=== PATIENT | male | born 1955 | race Caucasian/White ===

== ENCOUNTER 2019-09-19 19:05 | Inpatient (IN) | payer OTHER ==
[~2019-09-19] VITALS: Ht 198.1 cm; Wt 95.3 kg
--- NOTE | 2019-09-20 02:00 | NUR ---
PLASTICS HEAT WELDER NOTE PATIENT RECEIVED FROM [facility] IN [facility]. PATIENT A/O X 3-4 WITH PERIODS OF FORGETFULNESS. PATIENT ABLE TO TRANSFER FROM [facility] TO BED. PATIENT NOTED TO BE SOB WITH SHALLOW BREATHS DURING EXERTION. SATURATION IN THE HIGH 80'S DURING EXERTION. UPON REST 02 SATURATION INCREASED TO 94%. PATIENT HR TACHY DURING EXERTIONS AND SR AT REST. PATIENT DENIES CHEST PAIN. PATIENT SKIN COOL, DIAPHORETIC AND CLAMMY, BLOOD SUGAR CHECK 130. PATIENT STATES HE FEELS REALLY WARM PATIENT AFEBRILE AXILLARY TEMP 97.8. CALLED AND NOTIFIED OF PATIENT TRANSFER TO HOSPITAL. AND PATIENT INSTRUCTED ON PLAN OF CARE AND GOALS FOR SHIFT. PATIENT GIVEN INSTRUCTIONS ON USE OF CALL LIGHT. PATIENT VERBALIZES UNDERSTANDING. PATIENT DENIES PAIN OR DISCOMFORT AT THIS TIME. RN WILL CONTINUE TO MONITOR FOR CHANGES.
[2019-09-20] MEDS ORDERED: IV 1/2NS 1000 ML 1,000 ML IV PRN (02:09)
[2019-09-20 02:12] VITALS: BP 102/56
[2019-09-20] MEDS ORDERED: ACETAMINOPHEN 325 MG TABLET PO PRN (02:30)
[2019-09-20] MEDS ORDERED: MAGNESIUM HYDROXIDE 30 ML UDC PO PRN (02:30)
[2019-09-20] MEDS ORDERED: ZOLPIDEM TARTRATE 5 MG TABLET PO PRN (02:30)
[2019-09-20] MEDS ORDERED: MORPHINE SULFATE INJ 2 MG/ML DISP.SYRIN IV PRN (02:30)
[2019-09-20] MEDS ORDERED: Z GUARD REMEDY 2 OZ OINT TP PRN (02:30)
[2019-09-20] MEDS ORDERED: ONDANSETRON HCL/PF 4 MG/2 ML VIAL IVP PRN (02:30)
[2019-09-20] MEDS ORDERED: HYDROCODONE/APAP 5/325MG 1 EACH TABLET PO PRN (02:30)
[2019-09-20] MEDS ORDERED: MAG HYDROX/AL HYDROX/SIMETH 30 ML UDC PO PRN (02:30)
--- NOTE | 2019-09-20 02:30 | NUR ---
WET ROOM SUPERVISOR NOTE 20 G RFA IV FROM [facility] OCCLUDED. IV REMOVED AND 22G IN R HAND PLACED. PATENT AND INTACT NO S/S OF INFILTRATION
[2019-09-20 04:00] VITALS: BP 102/49
[2019-09-20] MEDS ORDERED: PIPERACILLIN /TAZOBACTAM 3.375 G in IV D5W 50 ML IV SCH (06:00)
[2019-09-20] MEDS ORDERED: PIPERACILLIN /TAZOBACTAM 3.375 G VIAL IV ONE (06:01)
[2019-09-20] MEDS ORDERED: VANCOMYCIN 1 GM VIAL ONE (06:18)
[2019-09-20] MEDS ORDERED: VANCOMYCIN 1 GM in IV D5W 250ml IV ONE (06:30)
--- NOTE | 2019-09-20 07:15 | NUR ---
SYSTEMS PLANNER OPENING NOTE RECEIVED REPORT FROM PM NURSE.PATIENT IN BED.AXOX3-4.MOLD SOB NOTED.ON 2O 3L VIA NASAL CANULA.ON TELEMONITOR ST WITH PVC AND PAC .[id number].IV ON RH INTACT AND PATENT WITH IVF ORDERED.BED IS LOCKED AND IN LOW POSITION.CALL LIGHT IN REACH.BED ALARM ON.SRX3.PATIENT REQUESTING TO GET TRANSFERRED TO ANOTHER HOSPITAL.WAITING FOR PRIMARY DOCTOR AND SAP PORTAL CONSULTANT TO TALK TO THE PATIENT.WILL CONTINUE TO MONITOR.
[2019-09-20 07:25] LABS: BASOPHILS % (AUTO) 0.2 % (0.0-2.0); HEMATOCRIT 34 % (39-51); HEMOGLOBIN 11.5 g/dL (13.5-17.5); LYMPHOCYTES # (AUTO) 0.4 /CMM (0.8-4.8); MEAN CORPUSCULAR HGB CONC 34 g/dl (31.0-36.0); MEAN CORPUSCULAR VOLUME 85 fL (80-96); MONOCYTES # (AUTO) 0.5 /CMM (0.1-1.30); MONOCYTES % (AUTO) 22.2 % (2.0-12.0); NEUTROPHILS # (AUTO) 1.3 /CMM (1.8-8.9); NEUTROPHILS % (AUTO) 58.6 % (43.0-81.0); RED BLOOD CELL COUNT(AUTO) 3.98 MIL/uL (4.5-6.0); WHITE BLOOD COUNT (AUTO) 2.2 K/uL (4.3-11.0)
[2019-09-20] MEDS ORDERED: PANTOPRAZOLE 40 MG TABLET.DR PO SCH (07:30)
[2019-09-20 07:37] LABS: ALANINE AMINOTRANSFERASE 42 U/L (12-78); ALBUMIN 1.8 g/dL (3.4-5.0); ALKALINE PHOSPHATASE 86 U/L (46-116); ASPARTATE AMINOTRANSFERASE 34 U/L (15-37); BILIRUBIN,DIRECT 0.8 mg/dL (0.0-0.2); BILIRUBIN,TOTAL 1.1 mg/dL (0.2-1.0); CARBON DIOXIDE 26 mmol/L (21-32); CHLORIDE 103 mmol/L (98-107); CREATININE 1.2 mg/dL (0.6-1.3); GLUCOSE 137 mg/dL (74-106); MAGNESIUM 1.4 mg/dL (1.8-2.4); PHOSPHORUS 3.3 mg/dL (2.5-4.9); POTASSIUM 3.7 mmol/L (3.5-5.1); SODIUM SERUM 137 mmol/L (136-145); TOTAL PROTEIN, SERUM 5.3 g/dL (6.4-8.2); UREA NITROGEN, BLOOD 22 mg/dL (7-18)
[2019-09-20 07:44] LABS: CHOLESTEROL 105 mg/dL (<200); LDL 44 mg/dL (0-99); THYROID STIMULATING HORMONE 0.601 uIU/mL (0.358-3.74); TRIGLYCERIDES 215 mg/dL (30-150)
[2019-09-20 07:45] LABS: HDL CHOLESTEROL < 10 mg/dL (40-60); PLATELET COUNT (AUTO) 41 /CMM (150-450)
[2019-09-20 08:00] VITALS: BP 114/82
[2019-09-20] MEDS ORDERED: VANCOMYCIN 500 MG in IV D5W 100ml IV ONE (08:00)
[2019-09-20 08:17] VITALS: BP 114/82
[2019-09-20 08:22] LABS: BAND % (MANUAL) 2 % (0.0-5.0); LYMPHOCYTES % (MANUAL) 35 % (16-48); MONOCYTES % (MANUAL) 12 % (0-11.0); NEUTROPHILS % (MANUAL) 51 (42-76)
[2019-09-20] MEDS ORDERED: CEFE1VIA3 IV (08:43)
[2019-09-20] MEDS ORDERED: ALBU8.5H8 IH (08:43)
[2019-09-20] MEDS ORDERED: IPRA3AMP23 IH (08:43)
[2019-09-20] MEDS ORDERED: FILG480D2 IV (08:43)
[2019-09-20] MEDS ORDERED: AMLO10TA7 PO (08:43)
[2019-09-20] MEDS ORDERED: BUDE0.5A IH (08:43)
[2019-09-20] MEDS ORDERED: VANC1PIG IV (08:43)
[2019-09-20] MEDS ORDERED: methylPREDNISolone SOD SUCC 40 MG/ML VIAL IV SCH (10:00)
--- NOTE | 2019-09-20 10:00 | NUR ---
TELECOM COORDINATOR NOTE SEEN BY MD MENCHACA,UPDATED ABOUT PATIENT CONDITION WITH LABS,LOW PLATELETS AND WBC,GOT NEW ORDERS.SPOKE TO THE PATIENT.OK WITH PATIENT TO BE TRANSFERRED,WAITING FOR CASE MANGER.REFUSING IVF AND MEDS.EXPLAINED RISK AND BENEFIT .STILL REFUSING.
--- NOTE | 2019-09-20 10:00 | NUR ---
CAMPAIGN SPECIALIST NOTE PATIENT PULLED UT IV 2 TIMES.TOLD ITS ACCIDENTALLY.PATIENT WANT TO TRANSFER TO OTHER HOSPITAL.FIRE EXTINGUISHER INSTALLER AND GAS METER CHECKER NIKOLAI MADE AWARE.MADE AWARE THAT HE NEED CONTINUE CARE FOR .LATA FIRE EXTINGUISHER INSTALLER WILL FOLLOW UP LATER.REFUSED TO REINSERT IV.EXPLAINED RISK AND BENEFIT.STILL REFUSING.
[2019-09-20] MEDS ORDERED: Magnesium 1GM/D5W 100ML PREMIX 100 ML IV SCH (10:30)
[2019-09-20] MEDS ORDERED: ALBUTEROL HALF STRENGTH 1.25 MG/3 ML VIAL.NEB NEB SCH (11:30)
[2019-09-20 12:00] VITALS: BP 123/66
--- NOTE | 2019-09-20 12:00 | NUR ---
CRIMP SETTER NOTE CASE MANGER TALKED TO THE PATIENT,EXPLAINED PATIENT ADMITTED HERE BECAUSE OF INSURANCE.ANSWERED ALL QUESTIONS.
--- NOTE | 2019-09-20 12:00 | NUR ---
LEAD SOFTWARE TEST ENGINEER NOTE REFUSED BLOOD DRAW AND ALL TREATMENT.EXPLAINED RISK AND BENEFIT STILL REFUSING.
[2019-09-20] MEDS ORDERED: FEE PK DOSING 1 MIN EA MC ONE (12:16)
[2019-09-20 12:31] VITALS: BP 123/66
--- NOTE | 2019-09-20 13:10 | NUR ---
MANAGER CLINIC NOTE PATIENT LEFT AMA.NOT ACCEPTED ANY PAPERWORK.LEFT WITH ALEJANDRO.NO SOB NOTED.TOOK ALL BELONGINGS.REFUSED BODYCHECK.STUDENT NURSE HELPED OUT TO WHEEL PATIENT TO LOBBY.
[2019-09-20] MEDS ORDERED: VANCOMYCIN 1.25 GM in IV D5W 250 ML IV SCH (21:00)
== END 2019-09-20 13:10 | disposition left against medical advice (07) | DRG 140 ==
LOC: TELE1 09-20 01:55
PROVIDERS: ADMIT Hospitalist; ATTEND Hospitalist
DX: J44.1 Chronic obstructive pulmonary disease with (acute) exacerbation (principal); C85.90 Non-Hodgkin lymphoma, unspecified, unspecified site; D69.59 Other secondary thrombocytopenia; L03.116 Cellulitis of left lower limb; E83.42 Hypomagnesemia; E88.09 Other disorders of plasma-protein metabolism, not elsewhere classified; M86.672 Other chronic osteomyelitis, left ankle and foot; E78.1 Pure hyperglyceridemia; D72.819 Decreased white blood cell count, unspecified; T45.1X5A Adverse effect of antineoplastic and immunosuppressive drugs, initial encounter; Y92.009 Unspecified place in unspecified non-institutional (private) residence as the place of occurrence of the external cause; Z79.899 Other long term (current) drug therapy; I70.248 Atherosclerosis of native arteries of left leg with ulceration of other part of lower leg; L97.829 Non-pressure chronic ulcer of other part of left lower leg with unspecified severity; F17.210 Nicotine dependence, cigarettes, uncomplicated; Z82.49 Family history of ischemic heart disease and other diseases of the circulatory system
CPT/HCPCS: 36415; 80053-TC; 80061-TC; 80076-TC; 82962-TC; 83735-TC; 84100-TC; 84443-TC; 85025-TC; 85610-TC; 85652-TC; 87081-TC; G0378; J2543; J3370; J3490; J7060